=== PATIENT | female | born 1990 | race Two or more races ===

== ENCOUNTER 2023-01-04 15:40 | Outpatient (CLI) | payer OTHER ==
[~2023-01-04 15:40] MED LIST: ATROVENT 00.5 MG/2.5 IH; ATROVENT HFA12.9 GM IH; TESSALON PERLE100 M1 PO
== END 2023-01-04 17:43 | disposition home or self-care (01) ==
LOC: PRENATAL 15:40
PROVIDERS: ATTEND Obstetrics & Gynecology Maternal & Fetal Medicine
DX: O35.9XX0 Maternal care for (suspected) fetal abnormality and damage, unspecified, not applicable or unspecified (principal); O99.210 Obesity complicating pregnancy, unspecified trimester; Z3A.22 22 weeks gestation of pregnancy

== ENCOUNTER 2023-02-16 10:50 | Outpatient (CLI) | payer OTHER | END 2023-02-16 12:15 | disposition home or self-care (01) | LOC: PRENATAL 10:50 | PROVIDERS: ATTEND Obstetrics & Gynecology Maternal & Fetal Medicine | DX: O26.849 Uterine size-date discrepancy, unspecified trimester (principal); O99.210 Obesity complicating pregnancy, unspecified trimester; Z3A.28 28 weeks gestation of pregnancy ==

== ENCOUNTER 2025-03-25 11:50 | Emergency (ER) | payer OTHER ==
[~2025-03-25] VITALS: Ht 167.6 cm; Wt 77.1 kg
[2025-03-25] MEDS ORDERED: ORPHENADRINE CITRATE 30 MG/ML AMPUL IM STA ×2 (12:58)
[2025-03-25] MEDS ORDERED: ORPHENADRINE CITRATE 100 MG TABLET PO STA (13:23)
== END 2025-03-25 14:58 | disposition home or self-care (01) ==
LOC: ER 11:50
DX: M54.2 Cervicalgia (principal); Z88.8 Allergy status to other drugs, medicaments and biological substances

== ENCOUNTER 2025-07-09 07:44 | Day surgery (SDC) | payer OTHER ==
[2025-07-07 11:32] VITALS: BP 112/66
[~2025-07-09] VITALS: Ht 167.6 cm; Wt 107.5 kg
[2025-07-09] MEDS ORDERED: METRONIDAZOLE/SODIUM CHLORIDE 500 MG/100 ML PIGGYBACK IV ONE (15:00)
[2025-07-09] MEDS ORDERED: CEFTRIAXONE SODIUM 2,000 MG VIAL IV ONE (15:00)
[2025-07-09] MEDS ORDERED: ENOXAPARIN SODIUM 40 MG/0.4 ML SYRINGE SUBCUTANEO ONE (15:00)
[2025-07-09] MEDS ORDERED: BUPIVACAINE HCL 30 ML VIAL IJ ONE (15:00)
[2025-07-09] MEDS ORDERED: SUGAMMADEX SODIUM 200 MG/2 ML VIAL IV ONE (15:45)
[2025-07-09] MEDS ORDERED: CELEBREX200MG PO (15:52)
[2025-07-09] MEDS ORDERED: NEURONTIN300 MG PO (15:52)
[2025-07-09] MEDS ORDERED: PERCOCET 5-3251 EACH PO (15:52)
[2025-07-09] MEDS ORDERED: POLY119PG PO (15:52)
[2025-07-09] MEDS ORDERED: MORPHINE SULFATE 4 MG/ML VIAL IV ONE (16:50)
== END 2025-07-09 17:55 | disposition home or self-care (01) ==
LOC: CIR.AMB 07:44
PROVIDERS: ATTEND Surgery
DX: K43.0 Incisional hernia with obstruction, without gangrene (principal); Z88.6 Allergy status to analgesic agent
CPT/HCPCS: 49594; C1781